=== PATIENT | female | born 2000 | race Caucasian/White ===

== ENCOUNTER → 2023-04-19 07:51 | Outpatient (CLI) | payer OTHER, SELFPAY ==
--- NOTE | 2023-04-21 16:19 | DI.NM.S_ITS ---
DATE OF SERVICE: 04/19/2023 PROCEDURE: Exercise treadmill stress test without imaging. ORDERING PROVIDER: Candy Olievira M.D. INDICATIONS: The patient is a 22-year-old female with exertional palpitations and atrial tachycardia. FINDINGS: 1. The patient was able to exercise for 11 minutes on a standard Eulogio protocol suggesting a fair exercise capacity with an NIDHI of -5%, achieving 12.8 METS. 2. She had a normal heart rate and blood pressure response to exercise with a resting heart rate of 90 BPM increasing to a maximum of 180 BPM (92% of her predicted maximum). 3. She had no chest pain or other anginal symptoms. 4. The resting ECG showed sinus rhythm with normal ST segments. There were no significant ST-segment shifts or arrhythmias with stress. IMPRESSION: 1. Normal exercise treadmill stress test for ischemia. 2. Average exercise capacity without angina or arrhythmias with stress. Marianna Bar - NATHANAEL/burak/[place] doc#: [id number]/job#: [id number] dd: 04/19/2023 16:14:00 dt: 04/20/2023 01:16:00 DICTATING MD/COPIES TO: Osbaldo Hayes MD; Candy Oliveira M.D. COPIES MNE: JASON;
== END ==
PROVIDERS: Referring Provider Internal Medicine Cardiovascular Disease; Visit Provider Internal Medicine Cardiovascular Disease
DX: R00.2 Palpitations (principal)
CPT/HCPCS: 93017